=== PATIENT | female | born 1970 | race Caucasian/White ===

== ENCOUNTER 2018-07-01 23:35 | Emergency (ER) | payer MEDICARE, MEDICAID ==
[~2018-07-01] VITALS: Ht 160 cm; Wt 57.1 kg
[~2018-07-01 23:35] MED LIST: CARI350T PO; CLON-527 PO; HYDR-4353 PO; LOPE2CAP PO; NAPR-1154 PO; OMEP40CA37 PO; ONDA8TAB9 PO; PRED20TA PO
[2018-07-02 00:53] VITALS: BP 135/89
== END 2018-07-02 01:05 | disposition home or self-care (01) ==
LOC: ER 23:36
DX: K02.9 Dental caries, unspecified (principal); G35 Multiple sclerosis; J32.0 Chronic maxillary sinusitis; J45.909 Unspecified asthma, uncomplicated; G89.29 Other chronic pain; M79.7 Fibromyalgia; F12.90 Cannabis use, unspecified, uncomplicated; Z98.890 Other specified postprocedural states; Z56.0 Unemployment, unspecified; Z79.899 Other long term (current) drug therapy
CPT/HCPCS: 99281

== ENCOUNTER 2019-05-03 14:26 | Emergency (ER) | payer MEDICARE, MEDICAID ==
[~2019-05-03] VITALS: Ht 160 cm; Wt 62.8 kg
[~2019-05-03 14:26] MED LIST changes: +OMEP40CA13 PO; -OMEP40CA37 PO
--- NOTE | 2019-05-03 16:01 | NUR ---
patient admits to taking methamphetamine, which has affected her MS and she has not taken any of her MS medications. she has also been drinking heavily.
[2019-05-03] MEDS ORDERED: LORazepam 1 MG tablet PO ONE (16:05)
[2019-05-03] MEDS ORDERED: diphenhydrAMINE 25mg capsule PO ONE (16:05)
[2019-05-03] MEDS ORDERED: ibuprofen tablet 400 MG TABLET PO ONE (16:05)
[2019-05-03] MEDS ORDERED: acetaminophen 325mg tablet PO ONE (16:05)
== END 2019-05-03 16:51 | disposition home or self-care (01) ==
LOC: ER 14:27
DX: M54.2 Cervicalgia (principal); R51 Headache; G35 Multiple sclerosis; J45.909 Unspecified asthma, uncomplicated; G89.29 Other chronic pain; F32.9 Major depressive disorder, single episode, unspecified; Z98.890 Other specified postprocedural states; Z56.0 Unemployment, unspecified; Z79.899 Other long term (current) drug therapy
CPT/HCPCS: 99284; Q0163

== ENCOUNTER 2019-08-28 11:47 | Emergency (ER) | payer MEDICARE, MEDICAID ==
[~2019-08-28] VITALS: Ht 160 cm; Wt 68.8 kg
[2019-08-28] MEDS ORDERED: LORazepam 2 mg/ml vial IV ONE (13:55)
[2019-08-28] MEDS ORDERED: normal saline 1000ML IV soln IVB ONE (13:55)
[2019-08-28 14:10] LABS: BASOPHILS # (AUTO) 0.1 X10'3 (0-0.2); BASOPHILS % (AUTO) 0.9 % (0-1); EOSINOPHILS # (AUTO) 0.1 X10'3 (0-0.9); EOSINOPHILS % (AUTO) 1.3 % (0-6); HEMATOCRIT 43.1 % (35.0-45.0); HEMOGLOBIN 14.7 g/dl (12.0-16.0); LYMPHOCYTES # (AUTO) 1.9 X10'3 (1.1-4.8); MEAN CORPUSCULAR HEMOGLOBIN 27.8 PG (27.0-31.0); MEAN CORPUSCULAR HGB CONC 34.2 g/dL (33.0-36.5); MEAN CORPUSCULAR VOLUME 81.4 FL (78-98); MEAN PLATELET VOLUME 10.8 FL (7.4-10.4); MONOCYTES % (AUTO) 10.6 % (2-12); NEUTROPHILS # (AUTO) 6.1 X10'3 (1.8-7.7); NEUTROPHILS % (AUTO) 66.2 % (42-75); PLATELET COUNT 264 X10'3 (140-440); RED CELL DISTRIBUTION WIDTH 14.3 % (11.5-14.5); WHITE BLOOD COUNT 9.2 X10'3 (4.5-11.0)
[2019-08-28 14:16] LABS: ALANINE AMINOTRANSFERASE 19 U/L (12-78); ALBUMIN 3.9 G/DL (3.4-5.0); ALBUMIN/GLOBULIN RATIO 1.3 (1.1-1.5); ALKALINE PHOSPHATASE 86 IU/L (46-116); ANION GAP 8 (8-16); ASPARTATE AMINO TRANSFERASE 14 U/L (10-37); BILIRUBIN,TOTAL 0.4 MG/DL (0.1-1.0); BLOOD UREA NITROGEN 13 MG/DL (7-18); BUN/CREATININE RATIO 15.9 (6.6-38.0); CALCIUM 8.9 MG/DL (8.5-10.1); CHLORIDE 106 MMOL/L (99-107); CREATININE 0.82 MG/DL (0.40-0.90); GLUCOSE 95 MG/DL (70-104); POTASSIUM 3.4 MMOL/L (3.5-5.1); SODIUM 142 MMOL/L (135-145); TOTAL CARBON DIOXIDE 28.4 MMOL/L (24-32); TOTAL PROTEIN 6.9 G/DL (6.4-8.2); eGFR 75 ML/MIN
[2019-08-28 14:56] LABS: LARGE PLATELETS FEW; PLATELET ESTIMATE NORMAL
[2019-08-28] MEDS ORDERED: diazepam inj 5 MG/ML inj. IV ONE (15:15)
[2019-08-28] MEDS ORDERED: ketorolac tromethamine 15mg/ml inj. IM ONE (15:15)
[2019-08-28] MEDS ORDERED: MECL12.584 PO (15:17)
[2019-08-28] MEDS ORDERED: meclizine 12.5mg tablet PO ONE (15:20)
[2019-08-28] MEDS ORDERED: diazepam 5mg tablet PO ONE (15:35)
[2019-08-28 15:36] VITALS: BP 173/86
== END 2019-08-28 15:54 | disposition home or self-care (01) ==
LOC: ER 11:48
DX: R42 Dizziness and giddiness (principal); I10 Essential (primary) hypertension; M54.5 Low back pain; G35 Multiple sclerosis; J45.909 Unspecified asthma, uncomplicated; G89.29 Other chronic pain; M79.7 Fibromyalgia; F12.90 Cannabis use, unspecified, uncomplicated; Z98.890 Other specified postprocedural states; Z56.0 Unemployment, unspecified; Z79.899 Other long term (current) drug therapy
CPT/HCPCS: 36415; 80053; 85025; 93005; 96361; 96374; 96375; 99284; J1885; J2060; J7030; J8597; J3360

== ENCOUNTER 2020-12-14 20:25 | Emergency (ER) | payer MEDICARE, MEDICAID ==
[~2020-12-14] VITALS: Ht 160 cm; Wt 78.4 kg
[~2020-12-14 20:25] MED LIST changes: +MECL-231 PO
[2020-12-14] MEDS ORDERED: predniSONE 20 mg tablet PO ONE (22:40)
[2020-12-14] MEDS ORDERED: HYDROcodone/acetaminophen 5mg/325mg tablet PO ONE (22:40)
[2020-12-14] MEDS ORDERED: cephalexin 250mg capsule PO ONE (22:40)
[2020-12-14] MEDS ORDERED: PRED10TA23 PO (22:46)
[2020-12-14] MEDS ORDERED: CEPH250T PO (22:46)
[2020-12-14] MEDS ORDERED: HYDR-3965 PO (22:46)
[2020-12-14] MEDS ORDERED: LORazepam 1 MG tablet PO ONE (22:55)
[2020-12-14] MEDS ORDERED: TRIA15CR61 TOP (22:56)
[2020-12-14 23:28] VITALS: BP 175/115
== END 2020-12-14 23:31 | disposition home or self-care (01) ==
LOC: ER 20:26
DX: R21 Rash and other nonspecific skin eruption (principal); J45.909 Unspecified asthma, uncomplicated; G89.29 Other chronic pain; M79.7 Fibromyalgia; F32.9 Major depressive disorder, single episode, unspecified; F12.90 Cannabis use, unspecified, uncomplicated; Z98.890 Other specified postprocedural states; Z56.0 Unemployment, unspecified; Z79.899 Other long term (current) drug therapy
CPT/HCPCS: 99284; J7512

== ENCOUNTER 2021-09-29 17:55 | Emergency (ER) | payer MEDICARE, MEDICAID ==
[~2021-09-29] VITALS: Ht 160 cm; Wt 67.8 kg
[~2021-09-29 17:55] MED LIST changes: +CEPH250T PO; -OMEP40CA13 PO; +OMEP40CA21 PO
[2021-09-29 18:42] VITALS: BP 122/86
[2021-09-29] MEDS ORDERED: predniSONE 20 mg tablet PO ONE (21:35)
[2021-09-29] MEDS ORDERED: ibuprofen tablet 400 MG TABLET PO ONE (21:35)
[2021-09-29] MEDS ORDERED: ondansetron 4mg rapidly disintigrating tab PO ONE (21:45)
[2021-09-29] MEDS ORDERED: NIRM1TAB PO (22:55)
[2021-09-29] MEDS ORDERED: PRED10TA23 PO (22:55)
[2021-09-29] MEDS ORDERED: ALBU6.7H9 INH (22:55)
[2021-09-29] MEDS ORDERED: ONDA4TAB12 PO (22:55)
== END 2021-09-29 23:11 | disposition home or self-care (01) ==
LOC: ER 17:56
DX: U07.1 COVID-19 (principal); R05.9 Cough, unspecified; J45.909 Unspecified asthma, uncomplicated; G35 Multiple sclerosis; G89.29 Other chronic pain; M79.7 Fibromyalgia; F12.90 Cannabis use, unspecified, uncomplicated; Z56.0 Unemployment, unspecified; Z79.899 Other long term (current) drug therapy
CPT/HCPCS: 71045; 87635; 99284; C9803; J7512

== ENCOUNTER 2021-10-02 11:22 | Emergency (ER) | payer MEDICARE, MEDICAID ==
[~2021-10-02] VITALS: Ht 160 cm; Wt 68.0 kg
[~2021-10-02 11:22] MED LIST changes: +ALBU6.7H9 INH; +NIRM1TAB PO; +ONDA4TAB12 PO; +PRED10TA23 PO
[2021-10-02 11:35] VITALS: BP 146/98
[2021-10-02 13:26] LABS: ALANINE AMINOTRANSFERASE 21 U/L (12-78); ALBUMIN 3.7 G/DL (3.4-5.0); ALBUMIN/GLOBULIN RATIO 1.3 (1.1-1.5); ALKALINE PHOSPHATASE 69 IU/L (46-116); ANION GAP 13 (8-16); ASPARTATE AMINO TRANSFERASE 21 U/L (10-37); BILIRUBIN,TOTAL 0.3 MG/DL (0.1-1.0); BLOOD UREA NITROGEN 14 MG/DL (7-18); BUN/CREATININE RATIO 22.2 (6.6-38.0); CALCIUM 8.3 MG/DL (8.5-10.1); CHLORIDE 106 MMOL/L (99-107); CREATININE 0.63 MG/DL (0.40-0.90); GLUCOSE 90 MG/DL (70-104); POTASSIUM 3.9 MMOL/L (3.5-5.1); SODIUM 142 MMOL/L (135-145); TOTAL CARBON DIOXIDE 22.8 MMOL/L (24-32); TOTAL PROTEIN 6.6 G/DL (6.4-8.2); eGFR > 90 ML/MIN
[2021-10-02 13:50] LABS: BASOPHILS % (AUTO) 0.5 % (0-1); EOSINOPHILS % (AUTO) 0.2 % (0-6); HEMOGLOBIN 13.8 g/dl (12.0-16.0); LYMPHOCYTES # (AUTO) 0.6 X10'3 (1.1-4.8); LYMPHOCYTES % (AUTO) 17.8 % (21-51); MEAN CORPUSCULAR HEMOGLOBIN 27.5 PG (27.0-31.0); MEAN CORPUSCULAR HGB CONC 33.6 g/dL (33.0-36.5); MEAN PLATELET VOLUME 10.1 FL (7.4-10.4); MONOCYTES # (AUTO) 0.5 X10'3 (0-0.9); MONOCYTES % (AUTO) 14.9 % (2-12); NEUTROPHILS # (AUTO) 2.2 X10'3 (1.8-7.7); NEUTROPHILS % (AUTO) 66.6 % (42-75); PLATELET COUNT 192 X10'3 (140-440); RED BLOOD COUNT 5.01 X10'6 (4.20-5.60); RED CELL DISTRIBUTION WIDTH 13.1 % (11.5-14.5); WHITE BLOOD COUNT 3.3 X10'3 (4.5-11.0)
--- NOTE | 2021-10-02 14:10 | NUR ---
Pt given and understands d/c instructions. Ambulatory with a steady gait.
== END 2021-10-02 14:10 | disposition home or self-care (01) ==
LOC: ER 11:23
DX: U07.1 COVID-19 (principal); N92.1 Excessive and frequent menstruation with irregular cycle; R42 Dizziness and giddiness; N93.9 Abnormal uterine and vaginal bleeding, unspecified; R53.83 Other fatigue; R53.1 Weakness; J45.909 Unspecified asthma, uncomplicated; G89.29 Other chronic pain; F32.A Depression, unspecified; F12.90 Cannabis use, unspecified, uncomplicated; Z98.890 Other specified postprocedural states; Z56.0 Unemployment, unspecified; Z79.2 Long term (current) use of antibiotics; Z79.899 Other long term (current) drug therapy
CPT/HCPCS: 36415; 80053; 85025; 99283

== ENCOUNTER 2024-09-14 12:25 | Outpatient (CLI) | payer MEDICARE, MEDICAID ==
[~2024-09-14 12:25] MED LIST changes: +ALBU6.7H14 INH; -ALBU6.7H9 INH; -CEPH250T PO; +ONDA-243 PO; -ONDA4TAB12 PO; -PRED10TA23 PO
== END 2024-09-14 23:59 | disposition home or self-care (01) ==
LOC: RAD 12:25
PROVIDERS: ATTEND Family Medicine
DX: R40.20 Unspecified coma (principal); R56.9 Unspecified convulsions
CPT/HCPCS: 95816